=== PATIENT | female | born 1980 | race Two or more races ===

== ENCOUNTER 2018-08-12 05:45 | Emergency (ER) | payer OTHER ==
[2018-08-12 05:58] VITALS: RESP 18; O2SAT 99
[2018-08-12] MEDS ORDERED: Sodium Chloride 0.9% 1,000 ML IV STA (06:17)
[2018-08-12] MEDS ORDERED: Morphine 4 MG/ML VIAL IV ONE (06:26)
[2018-08-12] MEDS ORDERED: Morphine 4 MG/ML VIAL ONE ×2 (06:29→12:30)
--- NOTE | 2018-08-12 06:33 | ED PDOC ---
HPI: Female Pain Time Seen by Provider: 08/12/18 06:00 Chief Complaint (Nursing): Female Genitourinary Chief Complaint (Provider): Vaginal Bleeding History Per: Patient History/Exam Limitations: no limitations Onset/Duration Of Symptoms: Hrs (2am) Current Symptoms Are (Timing): Still Present Quality Of Discomfort: "Pain" Associated Symptoms: denies: Fever, Vomiting, Urinary Symptoms Additional Complaint(s): 38 year old female with estela presents to the ED for an evaluation of heavy vaginal bleeding onset 2am. Patient states she has been for 2 months and her last menstrual period was on May 19. She also reports of stomach pain. When she last visited Dr. Vazquez, she was informed her hcg had decreased and she had done US and blood drawn. Denies fever, chills, cough, vomiting, diarrhea, nausea or urinary symptoms. PMD: Dr. Vazquez Abnormal Vaginal Bleeding: Yes Past Medical History Reviewed: Historical Data, Nursing Documentation, Vital Signs Vital Signs: Last Vital Signs Temp 97.6 F 08/12/18 05:52 Pulse 77 08/12/18 05:52 Resp 18 08/12/18 05:52 BP 107/67 08/12/18 05:52 Pulse Ox 99 08/12/18 05:52 - Medical History Other PMH: estela - Surgical History Surgical History: No Surg Hx - Family History Family History: States: Unknown Family Hx - Social History Current smoker - smoking cessation education provided: No Alcohol: None Drugs: Denies - Allergies Allergies/Adverse Reactions: Allergies Allergy/AdvReac Type Severity Reaction Status Date / Time No Known Allergies Allergy Verified 08/12/18 05:58 Review of Systems ROS Statement: Except As Marked, All Systems Reviewed And Found Negative Constitutional: Negative for: Fever, Chills Cardiovascular: Negative for: Chest Pain Respiratory: Negative for: Cough, Shortness of Breath Gastrointestinal: Positive for: Abdominal Pain. Negative for: Nausea, Vomiting, Diarrhea Genitourinary Female: Positive for: Vaginal Bleeding. Negative for: Dysuria, Frequency, Incontinence, Hematuria Skin: Negative for: Rash Physical Exam - Reviewed Nursing Documentation Reviewed: Yes Vital Signs Reviewed: Yes - Physical Exam Appears: Positive for: Non-toxic Head Exam: Positive for: ATRAUMATIC, NORMAL INSPECTION, NORMOCEPHALIC Skin: Positive for: Normal Color, Warm, Dry. Negative for: Rash Eye Exam: Positive for: EOMI, Normal appearance, PERRL ENT: Positive for: Normal ENT Inspection Neck: Positive for: Normal, Painless ROM, Supple. Negative for: Decreased ROM Cardiovascular/Chest: Positive for: Regular Rate, Rhythm. Negative for: Murmur Respiratory: Positive for: Normal Breath Sounds. 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 Negative for: Speculum Exam Normal (Provider attempted to perform pelvic exam but patient differed. Patient would not let provider advance with speculum. ) Back: Positive for: Normal Inspection. Negative for: L CVA Tenderness, R CVA Tenderness Extremity: Positive for: Normal ROM. Negative for: Tenderness, Pedal Edema, Deformity Neurologic/Psych: Positive for: Alert, Oriented (x3). Negative for: Motor/Sensory Deficits - Laboratory Results Result Diagrams: 08/12/18 08:13 08/12/18 08:13 - ECG O2 Sat by Pulse Oximetry: 99 (RA) Pulse Ox Interpretation: Normal Medical Decision Making Medical Decision Making: Time: 615 Initial Plan:vag bleeding in rule out miscarraige BBK Type and Screen BETA-HCG, Quantitative CBC w/ Differential Normal Saline 999 mls/hr Acetaminophen 650mg Tranvag [US] Reevaluation Time: [address] Willett pending , US and reevaluation. ------ Scribe Attestation: Documented by Mason Hassan, acting as a scribe for Josue Lewis MD. Provider Scribe Attestation: All medical record entries made by the Scribe were at my direction and personally dictated by me. I have reviewed the chart and agree that the record accurately reflects my personal performance of the history, physical exam, medical decision making, and the department course for this patient. I have also personally directed, reviewed, and agree with the discharge instructions and disposition. Disposition - Clinical Impression Clinical Impression: Vaginal bleeding before 22 weeks gestation - Patient ED Disposition Is Patient to be Admitted: Transfer of Care - Disposition Referrals: Dmitry Vazquez DO [Family Provider] - Disposition: Transfer of Care Disposition Time: 07:00 Condition: GOOD Additional Instructions: ABBEY GERMANIALEXIEFFIE, thank you for letting us take care of you today. Your provider was Renzo Willett MD and you were treated for POSS MISCARRIAGE. The emergency medical care you received today was directed at your acute symptoms. If you were prescribed any medication, please fill it and take as directed. It may take several days for your symptoms to resolve. Return to the Emergency Department if your symptoms worsen, do not improve, or if you have any other problems. Please contact your doctor or call one of the physicians/clinics you have been referred to that are listed on the Patient Visit Information form that is included in your discharge packet. Bring any paperwork you were given at discharge with you along with any medications you are taking to your follow up visit. Our treatment cannot replace ongoing medical care by a primary care provider outside of the emergency department. Thank you for allowing the [facility] team to be part of your care today. If you had an X-Ray or CT scan: A Radiologist will review the ED reading if any change in treatment is needed we will contact you. If you had a blood, urine, or wound culture: It will take several days for the r esults, if any change in treatment is needed we will contact you. If you had an STI test: It will take 48 hours for the results. Please call after 1 week if you have not heard back. Instructions: Threatened Miscarriage Forms: [facility] ED School/Work Excuse Patient Signed Over To: Renzo Willett Handoff Comments: patient pending US and reevaluation.
--- NOTE | 2018-08-12 07:30 | ED PDOC ---
- Laboratory Results Result Diagrams: 08/12/18 08:13 08/12/18 08:13 - ECG O2 Sat by Pulse Oximetry: 99 (RA) Pulse Ox Interpretation: Normal - Progress Re-evaluation Time: 11:00 Condition: Re-examined, Improved Medical Decision Making Medical Decision Makin Patient was endorsed to me by Dr. Lewis, pending workup for US, labs, and RH. 10:47 Transvaginal US FINDINGS: Probable gestational sac seen within lower uterine segment/cervix. The sac is elongated in morphology. The mean sac diameter is 15 mm equivalent to 5 weeks 6 days. No pole is identified by transabdominal technique. There is a small amount of fluid seen in the lower uterine segment as well. The uterus measures 11.4 x 3.9 x 5.8 cm. There is no mass. The endometrium measures 13 mm in width. The right ovary measures 1.2 x 1.4 x 2.0 cm. Normal flow is demonstrated. There is no mass. The left ovary measures 2.5 x 3.0 x 3.3 cm. There is no mass. Normal flow is demonstrated. There is no free fluid in the cul-de-sac. Please note that transvaginal evaluation could not be performed at this time due to severe cramping. IMPRESSION: Probable gestational sac in the cervix/lower uterine segment. Sac diameter corresponds to 5 weeks 6 days. Sac is somewhat elongated in appearance. No definite pole identified. Transabdominal only. Otherwise unremarkable. [address] Vazquez who recommends discharge. Scribe Attestation: Documented by Sukhwinder Perez, acting as a scribe for Renzo Willett MD. Provider Scribe Attestation: All medical record entries made by the Scribe were at my direction and personally dictated by me. I have reviewed the chart and agree that the record accurately reflects my personal performance of the history, physical exam, med ical decision making, and the department course for this patient. I have also personally directed, reviewed, and agree with the discharge instructions and disposition. Disposition Discussed With .: Dmitry Vazquez Doctor Will See Patient In The: Office Counseled Patient/Family Regarding: Studies Performed, Diagnosis, Need For Followup - Clinical Impression Clinical Impression: Vaginal bleeding before 22 weeks gestation - POA Present On Arrival: None - Disposition Referrals: Dmitry Vazquez, [Family Provider] - Disposition: Routine/Home Disposition Time: 11:23 Condition: GOOD Additional Instructions: ABBEY QUINONEZ, thank you for letting us take care of you today. Your provider was Renzo Willett MD and you were treated for POSS MISCARRIAGE. The emergency medical care you received today was directed at your acute symptoms. If you were prescribed any medication, please fill it and take as directed. It may take several days for your symptoms to resolve. Return to the Emergency Department if your symptoms worsen, do not improve, or if you have any other problems. Please contact your doctor or call one of the physicians/clinics you have been referred to that are listed on the Patient Visit Information form that is included in your discharge packet. Bring any paperwork you were given at discharge with you along with any medications you are taking to your follow up visit. Our treatment cannot replace ongoing medical care by a primary care provider outside of the emergency department. Thank you for allowing the [facility] team to be part of your care today. If you had an X-Ray or CT scan: A Radiologist will review the ED reading if any change in treatment is needed we will contact you. If you had a blood, urine, or wound culture: It will take several days for the results, if any change in treatment is needed we will contact you. If you had an STI test: It will take 48 hours for the results. Please call after 1 week if you have not heard back. Instructions: Threatened Miscarriage Forms: [facility] ED School/Work Excuse
[2018-08-12 08:23] LABS: BASO # 0.1 K/uL (0.0-0.2); BASO % 0.5 % (0.0-2.0); EOS # 0.1 K/uL (0.0-0.7); EOS % 0.4 % (0.0-4.0); HEMOGLOBIN 12.4 g/dL (12.0-16.0); LYMPH # 1.9 K/uL (1.0-4.3); LYMPH % 10.4 % (20.0-40.0); MEAN CELL VOLUME 79.8 fl (81.0-99.0); MEAN CORPUSCULAR HEMOGLOBIN 25.6 pg (27.0-31.0); MEAN CORPUSCULAR HGB CONC 32.1 g/dL (33.0-37.0); MEAN PLATELET VOLUME 9.3 fl (7.2-11.7); MONO # 0.6 K/uL (0.0-0.8); MONO % 3.5 % (0.0-10.0); NEUT # 15.7 K/uL (1.8-7.0); NEUT % 85.2 % (50.0-75.0); RBC 4.84 Mil/uL (3.80-5.20); RED CELL DISTRIBUTION WIDTH 14.4 % (11.5-14.5); WHITE BLOOD COUNT 18.4 K/uL (4.8-10.8)
[2018-08-12 08:51] LABS: ALB/GLOB RATIO 1.3 (1.0-2.1); ALBUMIN 4.3 g/dL (3.5-5.0); BLOOD UREA NITROGEN 11 mg/dl (7-17); CALCIUM 8.7 mg/dL (8.4-10.2); GFR NON-AFRICAN AMERICAN > 60
[2018-08-12 08:54] LABS: ALT/SGPT 24 U/L (9-52); AST/SGOT 28 U/L (14-36)
--- NOTE | 2018-08-12 10:51 | US ---
Date of service: 08/12/2018 PROCEDURE: Pelvic ultrasound HISTORY: pelvic pain and bleeding COMPARISON: Not available TECHNIQUE: Transabdominal FINDINGS: Probable gestational sac seen within lower uterine segment/cervix. The sac is elongated in morphology. The mean sac diameter is 15 mm equivalent to 5 weeks 6 days. No pole is identified by transabdominal technique. There is a small amount of fluid seen in the lower uterine segment as well. The uterus measures 11.4 x 3.9 x 5.8 cm. There is no mass. The endometrium measures 13 mm in width. The right ovary measures 1.2 x 1.4 x 2.0 cm. Normal flow is demonstrated. There is no mass. The left ovary measures 2.5 x 3.0 x 3.3 cm. There is no mass. Normal flow is demonstrated. There is no free fluid in the cul-de-sac. Please note that transvaginal evaluation could not be performed at this time due to severe cramping. IMPRESSION: Probable gestational sac in the cervix/lower uterine segment. Sac diameter corresponds to 5 weeks 6 days. Sac is somewhat elongated in appearance. No definite pole identified. Transabdominal only. Otherwise unremarkable.
[2018-08-12] MEDS ORDERED: Morphine 4 MG/ML VIAL IM STA (12:29)
[2018-08-12 14:29] VITALS: BP 115/62; PULSE 76; TEMP 98
== END 2018-08-12 13:10 | disposition home or self-care (01) ==
LOC: H.ER 05:45
DX: O46.92 Antepartum hemorrhage, unspecified, second trimester (principal); Z3A.22 22 weeks gestation of pregnancy